=== PATIENT | female | born 1935 | race Caucasian/White ===

== ENCOUNTER 2016-08-30 06:04 | Inpatient (IN) | payer MEDICARE ==
--- NOTE | ~2016-08-30 | OP ---
Record Of Operation [facility] [address] [place]. 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 PROCEDURE: Right total knee arthroplasty. SURGEON: Kvng Marrero M.D. PASSPORT APPLICATION EXAMINER: Estiven Faith. ANESTHESIA: Spinal with MAC. ESTIMATED BLOOD LOSS: 100 mL. COMPLICATIONS: None. DRAINS: ConstaVac x1. TOURNIQUET TIME: Was approximately 70 minutes. IMPLANTS: Juaquin and Juaquin Attune size 5 narrow posterior stabilized right femoral component, a size 4 modular tibial tray with 6 mm thick posterior stabilized tibial polyethylene insert, the patella was a 35 mm patella. All components were cemented in place with [employer] Simplex SpeedSet bone cement. INDICATIONS FOR SURGERY: Ms Rosario is a 80-year-old female with severe varus osteoarthritis of her right knee. She has had unremitting pain, which has been refractory to medical management. She presents requesting the above-mentioned procedure. Risks of the procedure as detailed in the history and physical, and operative consent were discussed prior to proceeding. She fully understood and has requested to proceed. PROCEDURE IN DETAIL: The patient was brought to the operating room and after induction of anesthesia, was positioned in the supine position. All appropriate pressure points were padded. The operative knee was then prepped and draped in the usual sterile fashion. Time out was performed confirming the appropriate surgical side and site. The leg was exsanguinated with an Shabbir wrap and the tourniquet inflated to 350 mmHg pressure. A medial parapatellar approach to the knee was performed. The skin and cutaneous tissues were incised sharply in the midline with a #10 blade. Electrocautery was used as needed to maintain hemostasis. The retinaculum was divided and the extensor mechanism exposed. A median parapatellar arthrotomy was carried out. The medial tibia was exposed subperiosteally and the patellofemoral ligaments divided. The patella was then subluxated laterally and the knee carefully flexed. The knee was Record Of Operation [facility] [address] [place]. [address] NAME: HAM ROSARIO : 39 STATUS : ADM IN PAT#: [id number] AGE: 80 ADM/REG DATE : 08/30/16 MR#: [id number] REPORT SERV DATE: 08/30/16 DICTATED BY: KVNG MARRERO DATE: 08/30/16 REPORT STATUS : Draft TRANSCRIBED BY: HARRIET DATE: 08/30/16 debrided of all osteophytes, meniscal remnants in the anterior and posterior cruciate ligaments. Attention was then turned to the distal femur. The intramedullary guide was set at 5 degrees of valgus and secured to the distal femur. The distal femoral resection was then carried out. The femur was then sized to the appropriate block as determined intraoperatively and from templating. The AP cutting block was secured in such a way as to create matched distal and posterior femoral resections in the appropriate rotation. The anterior and posterior femoral cuts were made, chamfer cuts were completed and the box was created for the posterior stabilized femoral component. Attention was then turned to the tibia. The extramedullary alignment guide was set a neutral varus/valgus to match the patient's [place] posterior tibial slope. The tibia was resected, removing 2 to 3 mm, from the most affected side. The tibial fragment was then removed. Attention was then turned to the posterior aspect of the knee and any remaining posterior femoral osteophytes or meniscal remnants were debrided. The patella was then everted and a uniform resection created taking the thickness of the planned patellar component. The cut was checked with a caliper to be sure of the appropriate resection level. The patella was then finally sized and three holes drilled for an oval domed three peg patella. At this point, the varus/valgus alignment of the knee was accessed. The appropriate releases were performed to balance the knee. A trial reduction was performed. The knee came to a full extension. There was 2 to 3 mm of opening to both varus and valgus stress at 30 and 90 degrees of flexion and normal patellar tracking. At this point, all trial components were removed and the final tibial preparation performed. The bony surfaces were copiously irrigated with normal saline and dried and the final components cemented in place. Once the cement had fully cured, the knee was carefully inspected and all extruded cement fragments were removed. A trial reduction was once again performed. Range of motion and stability of the knee were unchanged. The true tibial insert was then impacted in the clean tibial tray. A drain was placed deep through the arthrotomy and the knee was once again irrigated with pulsatile lavage normal saline. The arthrotomy was repaired using interrupted 1-0 Vicryl suture in a [id number] fashion. The subcutaneous tissues were approximated with interrupted 2-0 Vicryl suture, the skin stapled. A sterile dressing was applied. The tourniquet was deflated and the patient was taken to the Recovery Room in stable condition. POSTOP PLAN: The patient is to be weightbearing as tolerated with physical therapy to be started per total knee arthroplasty protocol. The patient will be on Coumadin and mechanical deep venous thrombosis prophylaxis. BHAKTI/HARRIET Kvng Record Of Operation [address] [address] NAME: HAM ROSARIO : 39 STATUS : ADM IN [facility]#: [id number] AGE: 80 ADM/REG DATE : 08/30/16 MR#: [id number] REPORT SERV DATE: 08/30/16 DICTATED BY: KVNG MARRERO DATE: 08/30/16 REPORT STATUS : Draft TRANSCRIBED BY: MODValerie DATE: 08/30/16 Richard Marrero / [id number] CC: Kvgn Marrero M.D.
[~2016-08-30 06:04] MED LIST: C25; DIOVAN HC1 PO; FESO4 PO; LEVOTHYROXIN137 MCG PO; LEVOTHYROXIN150 MCG PO; MVI PO; OXYCOD PO; PREM625 PO; Z100 PO
[2016-08-31 05:06] LABS: HEMOGLOBIN 10.1 g/dL (12.0-16.0)
[2016-08-31 05:12] LABS: INTERNATIONAL NORMAL RATI 1.3 UNITS (-)
[2016-08-31 05:17] LABS: PROTIME (NOT ORD) 15.7 SEC (12.0-14.5)
[2016-08-31 05:21] LABS: BUN (BLOOD UREA NITROGEN) 18 MG/DL (6-23); CALCIUM, SERUM 8.3 MG/DL (8.5-10.4); CHLORIDE, SERUM 101 MMOL/L (96-112); CO2 (CARBON DIOXIDE) 31 MMOL/L (24-34); CREATININE 1.23 MG/DL (0.55-1.02); GFR AFRICAN AMERICAN 49 ML/MIN (>=60); GFR NON AFRICAN AMERICAN 42 ML/MIN (>=60); GLUCOSE, SERUM 103 MG/DL (60-99); SODIUM, SERUM 141 MMOL/L (135-148)
[2016-09-01 05:37] LABS: INTERNATIONAL NORMAL RATI 1.5 UNITS (-)
[2016-09-01 05:41] LABS: HEMATOCRIT 30.6 % (36.0-48.0); HEMOGLOBIN 10.1 g/dL (12.0-16.0)
[2016-09-01 05:48] LABS: PROTIME (NOT ORD) 18.4 SEC (12.0-14.5)
[2016-09-01] MEDS ORDERED: COUMADIN3 MG PO (11:50)
[2016-09-01] MEDS ORDERED: OXYCOD PO (11:50)
== END 2016-09-01 14:43 | disposition home or self-care (01) | DRG 470 ==
LOC: SDC/OF 06:04 → PACU 10:47 → 3SO 12:33
PROVIDERS: Specialist
PROC: 0SRC0J9 Replacement of Right Knee Joint with Synthetic Substitute, Cemented, Open Approach (ICD-10-PCS; principal; 2016-08-30 07:45)
DX: M17.11 Unilateral primary osteoarthritis, right knee (principal); I10 Essential (primary) hypertension; K21.9 Gastro-esophageal reflux disease without esophagitis; E03.9 Hypothyroidism, unspecified; Z95.1 Presence of aortocoronary bypass graft
CPT/HCPCS: 36415; 71020; 80048; 80053; 81001; 85014; 85018; 85025; 85610; 85730; 86850; 86900; 86901; 87077; 87086; 87186; 87641; 88305; 88311; 93005; 97110-GP; 97116-GP; 97161-GP; 97165-GO; A9270-GY; C1776; G8978-CK-GP; G8979-CI-GP; G8987-CJ-GO; G8988-CJ-GO; G8989-CJ-GO; J0690; J1885; J2250; J2274; J2405; J2795; J3010